=== PATIENT | female | born 1950 | race Caucasian/White ===

== ENCOUNTER 2019-07-21 10:34 | Emergency (ER) | payer MEDICARE ==
[2019-07-21 10:44] VITALS: BP 124/79
--- NOTE | 2019-07-21 12:06 | ED Physician Documentation ---
PD HPI UPPER EXT INJURY - Stated complaint Stated Complaint: RT WRIST PX - Chief complaint Chief Complaint: Ext Problem - History obtained from History obtained from: Patient - History of Present Illness Location: Other (She has chronically bad balance, she tripped and fell last night, she injured her nose and her face. Mostly complains of right wrist and forearm pain. No headache. She is not anticoagulated.) Review of Systems Constitutional: denies: Fever, Chills Ears: denies: Ear pain Nose: denies: Rhinorrhea / runny nose, Congestion, Epistaxis Cardiac: denies: Chest pain / pressure, Palpitations Respiratory: denies: Dyspnea, Cough GI: denies: Abdominal Pain, Nausea, Vomiting Musculoskeletal: reports: Extremity pain. 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 - Present Medications Home Medications: Ambulatory Orders Medication Instructions Recorded Confirmed Hydrocodone/Acetaminophen 1 - 2 each PO Q6H PRN #20 tablet 07/21/19 [Hydrocodon-Acetaminophen 5-325] - Allergies Allergies/Adverse Reactions: Allergies Allergy/AdvReac Type Severity Reaction Status Date / Time propoxyphene [From Darvon] Allergy Diaphoresis Verified 07/21/19 10:39 - Social History Does the pt smoke?: No Smoking Status: Never smoker Does the pt drink ETOH?: Yes ETOH Use: Liquor - Immunizations Immunizations are current?: Yes PD ED PE NORMAL - Vitals Vital signs reviewed: Yes - General General: Alert and oriented X 3, No acute distress - HEENT HEENT: Other (She has periorbital ecchymosis on the right and is tender over the nasal bridge and less so to the infraorbital area. No evidence of entrapment. No other facial bony tenderness.) - Neck Neck: Supple, no meningeal sign, No bony TTP - Extremities Extremities: Other (Quite tender to the distal dorsal wrist, not the snuffbox. This is all on the right. She is also tender to the proximal forearm and elbow. She cannot range the wrist, she can range the elbow a little bit. Normal neurovascular function in the right hand.) - Neuro Neuro: Alert and oriented X 3, Normal speech Results - Vitals Vitals: Vital Signs - 24 hr 07/21/19 10:39 Temperature 36.5 C Heart Rate 89 Respiratory 14 Rate Blood Pressure 124/79 O2 Saturation 97 Oxygen O2 Source Room air - Rads (name of study) CT Face Radiology: EMP read contemporaneously (Left paranasal sinus disease, she is asymptomatic from that perspective but it was discussed with her.) X-rays of the right wrist and right forearm Radiology: EMP read contemporaneously (Nondisplaced oblique fracture of the distal diaphysis of the ulna) Procedures - Splint (location) R arm Splint applied by: [email or web address] Type of splint: Fiberglass, Short arm, Ulnar gutter Other: Patient tolerated well, No complications, Sling provided Departure - Departure Disposition: 01 Home, Self Care Clinical Impression: Fall Qualifiers: Encounter type: initial encounter Qualified Code(s): W19.XXXA - Unspecified fall, initial encounter Right distal ulnar fracture Qualifiers: Encounter type: initial encounter Fracture type: closed Fracture morphology: other fracture Qualified Code(s): S52.691A - Other fracture of lower end of right ulna, initial encounter for closed fracture Facial contusion Qualifiers: Encounter type: initial encounter Qualified Code(s): S00.83XA - Contusion of other part of head, initial encounter Condition: Good Record reviewed to determine appropriate education?: Yes Instructions: ED Fx Forearm Radius Ulna No Redu Requ, ED Head Injury Closed Follow-Up: [facility] [Provider Group] Prescriptions: Hydrocodone/Acetaminophen [Hydrocodon-Acetaminophen 5-325] 1 - 2 each PO Q6H PRN #20 tablet PRN Reason: pain Comments: Call the orthopedic surgeon's office today or tomorrow and arrange for a follow- up in a week or so. Return for new or worsening symptoms. Keep the splint on and dry until you follow-up with the orthopedic surgeons. Try to come out of the sling several times a day to move your shoulder around. Do not drink or drive while taking narcotic pain medication. Note that many narcotic pain relievers also contain Tylenol/acetaminophen. Please ensure that your total dose of acetaminophen from all sources does not exceed 3 g (3000 mg) per day. You may get constipated while on this medication. Take a stool softener such as Colace twice a day while you are on it. Also add an [id number] laxative such as senna or MiraLAX on any day that you do not have a bowel movement. If you received a narcotic pain medication or sedative while in the emergency department, do not drive for the next 24 hours.
--- NOTE | 2019-07-21 12:38 | XRAY Report ---
Reason: wrist inj Procedure Date: 07/21/2019 Accession Number: [id number] / [id number] Procedure: XR - Wrist 4 View RT CPT Code: Final Report FULL RESULT: EXAM: RIGHT WRIST RADIOGRAPHY 4 VIEWS EXAM DATE: 07/21/2019. CLINICAL HISTORY: Pain. Fell yesterday. COMPARISON: None. TECHNIQUE: PA, oblique and lateral views. FINDINGS: Bones: Nondisplaced oblique fracture of the distal diaphysis of the ulna. Joints: No dislocation. Chondrocalcinosis centered on the triangular fibrocartilage. Moderate degenerative joint disease of the interphalangeal joint of the thumb and of the visualized interphalangeal joints of the fingers.. Soft Tissues: Mild swelling of the distal forearm. IMPRESSION: Nondisplaced oblique fracture of the distal diaphysis of the ulna. RADIA
--- NOTE | 2019-07-21 12:41 | XRAY Report ---
Reason: arm inj Procedure Date: 07/21/2019 Accession Number: [id number] / [id number] Procedure: XR - Forearm RT CPT Code: Final Report FULL RESULT: EXAM: RIGHT FOREARM RADIOGRAPHY 2 VIEWS EXAM DATE: 07/21/2019. CLINICAL HISTORY: Pain. Fell yesterday. COMPARISON: Right wrist done at the same time. TECHNIQUE: AP and lateral views. FINDINGS: Bones: On the wrist radiographs, the distal ulnar fracture. Nondisplaced, on these radiographs, the distal ulnar fragment is displaced radial about 2 mm. No other fracture. Joints: No dislocation. No elbow joint effusion. Soft Tissues: Swelling of the distal forearm. IMPRESSION: Minimally displaced fracture of the distal diaphysis of the right ulna. RADIA
[2019-07-21] MEDS ORDERED: HYDROcod/ACETAM 5/325 MG TABLET PO STA (12:43)
--- NOTE | 2019-07-21 13:02 | CT Report ---
Reason: facial trauma Procedure Date: 07/21/2019 Accession Number: [id number] / [id number] Procedure: CT - MAXILLOFACIAL WO CPT Code: Final Report FULL RESULT: EXAM: CT MAXILLOFACIAL WITHOUT CONTRAST EXAM DATE: 07/21/2019 12:39 PM. CLINICAL HISTORY: Acute pain due to trauma. COMPARISONS: None. TECHNIQUE: Thin-section axial images were acquired of the face without contrast. Post-processing: Coronal and sagittal reformats. Other: None. In accordance with CT protocol optimization, one or more of the following dose reduction techniques were utilized for this exam: automated exposure control, adjustment of mA and/or KV based on patient size, or use of iterative reconstructive technique. FINDINGS: Soft Tissue: The infratemporal fossa and parapharyngeal spaces are unremarkable. Orbits: Symmetric and unremarkable. Bones: No fracture or bone lesion. Temporomandibular Joints: The temporomandibular joints are symmetric and normally located. Sinuses: There is moderate left-sided ethmoid and maxillary sinus disease. A small retention cyst is noted in the right maxillary sinus. The left ostiomeatal canal is occluded. Other: None. IMPRESSION: 1. Facial bones appear intact. Intraorbital structures appear intact. 2. Moderate predominantly left-sided paranasal sinus disease. RADIA
== END 2019-07-21 13:23 | disposition home or self-care (01) ==
LOC: ED 10:34
DX: S52.691A Other fracture of lower end of right ulna, initial encounter for closed fracture (principal); S00.83XA Contusion of other part of head, initial encounter; S00.33XA Contusion of nose, initial encounter; W01.0XXA Fall on same level from slipping, tripping and stumbling without subsequent striking against object, initial encounter; J32.0 Chronic maxillary sinusitis; J32.2 Chronic ethmoidal sinusitis; J34.1 Cyst and mucocele of nose and nasal sinus; I10 Essential (primary) hypertension
CPT/HCPCS: 29125; 70486; 73090; 73110; 99284; A9270

== ENCOUNTER 2019-12-31 12:32 | Outpatient (CLI) | payer MEDICARE ==
--- NOTE | 2019-12-31 13:40 | DEXA Report ---
Reason: OSTEOPOROSIS Procedure Date: 12/31/2019 Accession Number: [id number] / [id number] Procedure: DEX - Dexa Spine and/or Hip CPT Code: Final Report FULL RESULT: PROCEDURE: Dexa Spine and/or Hip INDICATIONS: OSTEOPOROSIS TECHNIQUE: Dual energy x-ray absorptiometry (DXA) was performed on a [employer] System. Regions measured are the AP Spine, femoral neck, and if needed forearm. COMPARISON: None. FINDINGS: Lumbar Spine: Bone Mineral Density 1.237 g/cm/cm,T score 0.5, normal Left Hip: Bone Mineral Density 0.900 g/cm/cm,T score -0.9, normal Left Femoral Neck: Bone Mineral Density 0.755 g/cm/cm, T score -2, normal (T score greater or equal to -1.0: NORMAL) (T score from -1.1 to -2.4: OSTEOPENIA) (T score less than or equal to -2.5 to: OSTEOPOROSIS) Impression: Normal bone mineral density, no sign of osteopenia or osteoporosis. Patients with diagnosis of osteoporosis or osteopenia should have regular bone mineral density assessment. For those eligible for Medicare, routine testing is allowed once every 2 years. Testing frequency can be increased for patients who have rapidly progressing disease or for those who are receiving medical therapy to restore bone mass. Reviewed by: Yaakov Lipscomb MD on 12/31/2019 1:39 PM PDT Approved by: Yaakov Lipscomb MD on 12/31/2019 1:39 PM PDT Station ID: [id number]
== END 2019-12-31 12:33 | disposition home or self-care (01) ==
LOC: DI 12:32
PROVIDERS: ATTEND Family Medicine
DX: M81.0 Age-related osteoporosis without current pathological fracture (principal)
CPT/HCPCS: 77080

== ENCOUNTER 2020-10-18 14:28 | Outpatient (CLI) | payer MEDICARE ==
[2020-10-18 19:25] LABS: ALBUMIN 4.5 g/dL (3.2-5.5); ALBUMIN/GLOBULIN RATIO 1.6 (1.0-2.2); ALKALINE PHOSPHATASE 86 IU/L (42-121); ALT ALANINE AMINOTRANSFERASE 29 IU/L (10-60); AST ASPARTATE AMINOTRANSFERASE 23 IU/L (10-42); BILIRUBIN,TOTAL 0.9 mg/dL (0.2-1.0); BUN - BLOOD UREA NITROGEN 16 mg/dL (6-20); CALCIUM 9.9 mg/dL (8.5-10.3); CARBON DIOXIDE - CO2 28 mmol/L (21-32); CHLORIDE 102 mmol/L (101-111); CHOL/HDL RATIO 3.7 (<4.4); CHOLESTEROL 247 mg/dL; CREATININE 0.6 mg/dL (0.4-1.0); GFR - MDRD 99 (>89); GLUCOSE 108 mg/dL (70-100); HDL CHOLESTEROL 66 mg/dL; LDL CHOLESTEROL,CALCULATED 148 mg/dL; LDL/HDL RATIO 2.2 (<4.4); SODIUM 138 mmol/L (135-145); TOTAL PROTEIN 7.3 g/dL (6.7-8.2); TRIGLYCERIDES 163 mg/dL; VLDL CHOLESTEROL 33 mg/dL
[2020-10-18 19:28] LABS: BASOPHILS % (AUTO) 0.7 %; EOSINOPHILS # (AUTO) 0.2 10^3/uL (0.0-0.7); HGB - HEMOGLOBIN 14.2 g/dL (12.0-16.0); LYMPHOCYTES # (AUTO) 0.9 10^3/uL (1.5-3.5); LYMPHOCYTES % (AUTO) 15.2 %; MEAN CORPUSCULAR HEMOGLOBIN 32.7 pg (27.0-31.0); MEAN CORPUSCULAR VOLUME 99.1 fL (81.0-99.0); MEAN PLATELET VOLUME 10.2 fL (7.9-10.8); MONOCYTES # (AUTO) 0.4 10^3/uL (0.0-1.0); MONOCYTES % (AUTO) 7.3 %; NEUTROPHILS # (AUTO) 4.4 10^3/uL (1.5-6.6); NEUTROPHILS % (AUTO) 73.3 %; PLT - PLATELET COUNT 260 10^3/uL (130-450); RED BLOOD COUNT 4.34 10^6/uL (4.20-5.40); RED CELL DISTRIBUTION WIDTH 13.6 % (12.0-15.0)
== END 2020-10-18 14:29 | disposition home or self-care (01) ==
LOC: LAB.N 14:28
PROVIDERS: ATTEND Physician Assistant Medical
DX: E78.5 Hyperlipidemia, unspecified (principal); K21.9 Gastro-esophageal reflux disease without esophagitis
CPT/HCPCS: 36415; 80053; 80061; 83721; 85025

== ENCOUNTER 2020-10-18 14:39 | Outpatient (CLI) | payer MEDICARE ==
--- NOTE | 2020-10-18 18:01 | XRAY Report ---
PROCEDURE: Lumbar Spine 2 View INDICATIONS: LUMBAR RADICULOPATHY TECHNIQUE: 3 views of the lumbar spine were acquired. COMPARISON: None. FINDINGS: Bones: 5 vph-bvp-ybkrset vertebrae are present. There is a mild superior wedge compression fracture involving L2, with approximately 20% height reduction anteriorly as a result. There is normal bony a lignment except for anterolisthesis grade 1 of L4 on L5.. No vertebral body compression fractures. No suspicious bony lesions. The degenerative disc disease and facet osteoarthritis is most prominent at L5-S1 where spinal and foraminal stenosis would be expected. Soft tissues: Overlying bowel gas pattern is normal. No suspicious soft tissue calcifications. IMPRESSION: Degenerative disc disease is moderate to the L5-S1 level where it is moderately severe. Facet osteoarthritis becomes progressively more prominent from L3 inferiorly and is most pronounced a t L5-S1. Anterolisthesis grade 1 of L4 on L5 is present. Previous correlate clinically chronicity of L2 superior mild wedge type compression fracture with tracy roximately 20% height reduction as a result. If there is acute pain and recent trauma this is conside red acute. Reviewed by: Yaakov Lipscomb MD on 10/18/2020 6:00 PM PDT Approved by: Yaakov Lipscomb MD on 10/18/2020 6:00 PM PDT Station ID: [id number]
--- NOTE | 2020-10-18 18:02 | XRAY Report ---
PROCEDURE: Hip w/Pelvis 1V LT INDICATIONS: L HIP PX TECHNIQUE: AP pelvis with lateral view(s) of the left hip(s). COMPARISON: None. FINDINGS: Bones: No fractures or dislocations. Pelvic ring appears intact. No suspicious bony lesions. Symm etric mild to moderate hip joint osteoarthritis is present without trauma. Soft tissues: The visualized bowel gas pattern is normal. No suspicious soft tissue calcifications. IMPRESSION: Symmetric hip joint osteoarthritis, mild to moderate, without trauma. Reviewed by: Yaakov Lipscomb MD on 10/18/2020 6:01 PM PDT Approved by: Yaakov Lipscomb MD on 10/18/2020 6:01 PM PDT Station ID: [id number]
== END 2020-10-18 14:40 | disposition home or self-care (01) ==
LOC: DI.N 14:39
PROVIDERS: ATTEND Physician Assistant Medical
DX: M47.816 Spondylosis without myelopathy or radiculopathy, lumbar region (principal); M47.817 Spondylosis without myelopathy or radiculopathy, lumbosacral region; M51.36 Other intervertebral disc degeneration, lumbar region; M51.37 Other intervertebral disc degeneration, lumbosacral region; M43.16 Spondylolisthesis, lumbar region; M16.0 Bilateral primary osteoarthritis of hip; E78.5 Hyperlipidemia, unspecified; K21.9 Gastro-esophageal reflux disease without esophagitis
CPT/HCPCS: 36415; 80053; 80061; 83721; 85025

== ENCOUNTER 2020-11-23 08:00 | Outpatient (CLI) | payer MEDICARE ==
--- NOTE | 2020-11-24 13:43 | XRAY Report ---
PROCEDURE: Wrist 3 View LT INDICATIONS: PAIN IN LEFT WRIST TECHNIQUE: 3 views of the wrist were acquired. COMPARISON: None FINDINGS: Bones: No fractures or dislocations. No suspicious bony lesions. Soft tissues: No suspicious soft tissue calcifications. IMPRESSION: No visualized acute fracture or dislocation. However, occult injury cannot be excluded. Recommend petr rt interval imaging follow-up in 7-10 days as clinically indicated for additional evaluation. Reviewed by: Sulema Charles MD on 11/24/2020 1:41 PM PDT Approved by: Sulema Charles MD on 11/24/2020 1:41 PM PDT Station ID: [id number]
--- NOTE | 2020-11-24 13:44 | XRAY Report ---
PROCEDURE: Ribs w/PA Chest LT INDICATIONS: RIB PAIN, LEFT SIDED TECHNIQUE: 3 views of the left ribs were acquired, along with a single view chest. COMPARISON: none FINDINGS: Surgical changes and devices: None. Bones and chest wall: No fractures or dislocations. No suspicious bony lesions. Overlying soft tis sues appear unremarkable. Lungs and pleura: No pleural effusions or pneumothorax. Lungs appear clear. Mediastinum: Mediastinal contours appear normal. Heart size is normal. IMPRESSION: No visualized acute fracture or dislocation. However, occult injury cannot be excluded. Recommend petr rt interval imaging follow-up in 7-10 days as clinically indicated for additional evaluation. Reviewed by: Sulema Charles MD on 11/24/2020 1:43 PM PDT Approved by: Sulema Charles MD on 11/24/2020 1:43 PM PDT Station ID: [id number]
== END 2020-11-23 23:59 | disposition home or self-care (01) ==
LOC: DI.N 08:00
PROVIDERS: ATTEND Family Medicine
DX: R07.81 Pleurodynia (principal); M25.532 Pain in left wrist

== ENCOUNTER 2020-12-03 07:45 | Day surgery (SDC) | payer MEDICARE ==
[2020-12-03] MEDS ORDERED: LACTATED RINGERS 1,000 ML IV ONE (08:12)
--- NOTE | 2020-12-03 08:58 | ANESTHESIA ---
Pre-Anesthesia VS, & Labs - Diagnosis screening - Procedure colonoscopy, possible removal skin tag Vital Signs: Temp Pulse Resp BP Pulse Ox 36.4 C L 95 16 125/82 H 97 12/03/20 08:03 12/03/20 08:03 12/03/20 08:03 12/03/20 08:03 12/03/20 08:03 Height: 5 ft 2 in Weight (kg): 86 kg Body Mass Index: 34.7 BMI Classification: Obese - NPO >8 hours - Is Patient ?: Yes Home Medications and Allergies Home Medications: Ambulatory Orders Atorvastatin [Lipitor] 20 mg PO DAILY 12/02/20 Folic Acid 1 mg PO DAILY 12/02/20 Lisinopril [Zestril] 10 mg PO DAILY 12/02/20 Methotrexate [Methotrexate Sodium] 5 mg PO ONCE 12/02/20 Omeprazole [PriLOSEC] 20 mg PO DAILY 12/02/20 Venlafaxine [Effexor] 37.5 mg PO BID 12/02/20 Zolpidem [Ambien] 5 mg PO HS 12/02/20 Atorvastatin [Lipitor] 20 mg PO DAILY 12/02/20 Folic Acid 1 mg PO DAILY 12/02/20 Lisinopril [Zestril] 10 mg PO DAILY 12/02/20 Methotrexate [Methotrexate Sodium] 5 mg PO ONCE 12/02/20 Omeprazole [PriLOSEC] 20 mg PO DAILY 12/02/20 Venlafaxine [Effexor] 37.5 mg PO BID 12/02/20 Zolpidem [Ambien] 5 mg PO HS 12/02/20 Allergies/Adverse Reactions: Allergies Allergy/AdvReac Type Severity Reaction Status Date / Time propoxyphene [From Darvon] Allergy Diaphoresis Verified 07/21/19 10:39 Sulfa (Sulfonamide Allergy Edema Verified 12/03/20 08:13 Antibiotics) Anes History & Medical History - Anesthetic History Anesthesia Complications: reports: No previous complications - Medical History Cardiovascular: reports: Hypertension, High cholesterol Pulmonary: reports: Sleep apnea, CPAP use Gastrointestinal: reports: GERD Skin: reports: Psoriasis Smoking Status: Never smoker History of Cancer?: No - Surgical History General: reports: Colonoscopy Gynecologic: reports: Hysterectomy Orthopedic: reports: Knee replacement Exam General: Alert Dental: WNL Mouth Opening: Greater than 4 Fingerbreadths Mallampati classification: II Thyromental Distance: greater than 6 cm Respiratory: Lungs clear Cardiovascular: Regular rate Plan Anesthesia Type: Total IV Consent for Procedure(s) Verified and Reviewed: Yes Code Status: Attempt Resuscitation ASA classification: 2-Mild systemic disease Is this case an emergency?: No
[2020-12-03] MEDS ORDERED: LIDOCAINE-MPF 2% 5 ML VIAL ONE (09:50)
[2020-12-03] MEDS ORDERED: PROPOFOL 1000 MG/100 ML 1,000 MG/100 ML BOTTLE IV ONE (09:50)
--- NOTE | 2020-12-03 10:08 | HISTORY & PHYSICAL EXAMINATION ---
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 Meds/Allgy - Home Medications Home Medications: Ambulatory Orders Medication Instructions Recorded Confirmed Atorvastatin [Lipitor] 20 mg PO DAILY 12/02/20 12/03/20 Folic Acid 1 mg PO DAILY 12/02/20 12/02/20 Lisinopril [Zestril] 10 mg PO DAILY 12/02/20 12/03/20 Methotrexate [Methotrexate Sodium] 5 mg PO ONCE 12/02/20 12/02/20 Omeprazole [PriLOSEC] 20 mg PO DAILY 12/02/20 12/02/20 Venlafaxine [Effexor] 37.5 mg PO BID 12/02/20 12/02/20 Zolpidem [Ambien] 5 mg PO HS 12/02/20 12/02/20 - Allergies Allergies/Adverse Reactions: Allergies Allergy/AdvReac Type Severity Reaction Status Date / Time propoxyphene [From Darvon] Allergy Diaphoresis Verified 07/21/19 10:39 Sulfa (Sulfonamide Allergy Edema Verified 12/03/20 08:13 Antibiotics) Review of Systems - Other Findings Other Findings: 10 pt ros as above otherwise unremarkable Exam - Vital Signs Reviewed Vital Signs: Yes Vital Signs: Vital Signs x48h Temp Pulse Resp BP Pulse Ox 12/03/20 08:03 36.4 C L 95 16 125/82 H 97 - Physical Exam General Appearance: positive: Alert Eyes Bilateral: positive: PERRL, EOMI Neck: positive: No JVD Respiratory: positive: Breath sounds nml Cardiovascular: positive: Regular rate & rhythm Abdomen: positive: Non-tender, No distention Neurologic/Psychiatric: positive: Oriented x3 Conclusion/Plan - Problem List (1) History of adenomatous polyp of colon Conclusion/Plan: colonoscopy with possible biopsy/ polypectomy and excision anal skin tag. parq held and consent obtained
[2020-12-03] MEDS ORDERED: LACTATED RINGERS 100 ML IV ONE (10:48)
[2020-12-03 11:13] VITALS: BP 118/58
--- NOTE | 2020-12-03 16:44 | ANESTHESIA POST OP EVALUATION ---
Anesthesia Post Eval - Post Anesthesia Eval Vitals: Last Vital Signs Temp 36.3 C L 12/03/20 11:12 Pulse 70 12/03/20 11:12 Resp 18 12/03/20 11:12 BP 118/58 L 12/03/20 11:12 Pulse Ox 99 12/03/20 11:12 CV Function Including HR & BP: Stable Pain Control: Satisfactory Nausea & Vomiting: Negative Mental Status: Baseline Respiratory Status: Airway Patent Hydration Status: Satisfactory Anesthesia Complications: None
== END 2020-12-03 07:46 | disposition home or self-care (01) ==
LOC: SDS 07:45
PROVIDERS: ATTEND Surgery
DX: Z12.11 Encounter for screening for malignant neoplasm of colon (principal); K57.30 Diverticulosis of large intestine without perforation or abscess without bleeding; E66.9 Obesity, unspecified; G47.30 Sleep apnea, unspecified; Z86.010 Personal history of colon polyps; Z68.34 Body mass index [BMI] 34.0-34.9, adult
CPT/HCPCS: G0105; J7120

== ENCOUNTER 2021-04-21 06:26 | Day surgery (SDC) | payer MEDICARE ==
[~2021-04-21 06:26] MED LIST: CYCLOPENTOLATE 1% OPHTH DROPS 2 ML ONE; KETOROLAC 0.45% OPHTH DROPS ONE; PHENYLEPHRINE 2.5% OPHTH 2 ML DROPS ONE; PROPARACAINE 0.5% OPHTH DROPS 15 ML ONE
[2021-04-21] MEDS ORDERED: LACTATED RINGERS 1,000 ML IV ONE (06:48)
--- NOTE | 2021-04-21 06:58 | ANESTHESIA ---
Pre-Anesthesia VS, & Labs - Diagnosis R nuclear sclerotic cataract - Procedure R extraction cataract Vital Signs: Temp Pulse Resp BP Pulse Ox 36.2 C L 94 18 113/67 97 04/21/21 06:30 04/21/21 06:30 04/21/21 06:30 04/21/21 06:30 04/21/21 06:30 Height: 5 ft 2 in Weight (kg): 83 kg Body Mass Index: 33.5 BMI Classification: Obese - NPO >8 hours - Is Patient ?: No - Lab Results Lab results reviewed: Yes Home Medications and Allergies Atorvastatin [Lipitor] 10 mg PO DAILY 12/02/20 Folic Acid 1 mg PO DAILY 12/02/20 Lisinopril [Zestril] 40 mg PO DAILY 12/02/20 Methotrexate [Methotrexate Sodium] 5 mg PO OAW 12/02/20 Omeprazole [PriLOSEC] 20 mg PO DAILY 12/02/20 Venlafaxine [Effexor] 37.5 mg PO DAILY 12/02/20 Zolpidem [Ambien] 5 mg PO HS 12/02/20 Allergies/Adverse Reactions: Allergies Allergy/AdvReac Type Severity Reaction Status Date / Time propoxyphene [From Darvon] Allergy Diaphoresis Verified 07/21/19 10:39 Sulfa (Sulfonamide Allergy Edema Verified 12/03/20 08:13 Antibiotics) Anes History & Medical History - Anesthetic History Anesthesia Complications: reports: No previous complications Family history of Anesthesia Complications: Denies Family history of Malignant Hyperthermia: Denies - Medical History Cardiovascular: reports: Hypertension, High cholesterol Pulmonary: reports: Sleep apnea, CPAP use Gastrointestinal: reports: GERD Urinary: reports: None Musculoskeletal: reports: Osteoarthritis Endocrine/Autoimmune: reports: None Skin: reports: Psoriasis Smoking Status: Never smoker Psychosocial: reports: No issues indicated - Surgical History General: reports: Colonoscopy Eyes Ears Nose Throat (EENT): reports: Tonsil/Adenoidectomy Gynecologic: reports: Hysterectomy Orthopedic: reports: Knee replacement Exam General: Alert, Oriented x3, Cooperative Dental: WNL Mouth Openin Fingerbreadth Neck Mobility: Normal Thyromental Distance: greater than 6 cm Respiratory: Lungs clear, Normal breath sounds, No respiratory distress Cardiovascular: Regular rate Neurological: Normal speech Mental/Cognitive Status: Alert/Oriented X3, Normal for patient Cognitive Status: Within normal limits Plan Anesthesia Type: MAC Consent for Procedure(s) Verified and Reviewed: Yes Code Status: Attempt Resuscitation ASA classification: 2-Mild systemic disease Is this case an emergency?: No
[2021-04-21] MEDS ORDERED: MIDAZOLAM 2 MG/2 ML VIAL ONE (07:05)
[2021-04-21] MEDS ORDERED: EPINEPHrine 1 MG/ML AMP ONE (07:14)
[2021-04-21] MEDS ORDERED: BSS/LIDOCAINE/EPINEPHRINE 1 ML SYRINGE ONE (07:14)
[2021-04-21] MEDS ORDERED: BRIMONIDINE 0.2% OPHTH DROPS 5 ML ONE (07:14)
[2021-04-21] MEDS ORDERED: TIMOLOL 0.5% OPHTH DROPS ONE (07:14)
[2021-04-21] MEDS ORDERED: TRIAMCIN/MOXIFLOX OPHTHALMIC 0.6 ML VIAL IO ONE ×3 (07:14→07:42)
[2021-04-21] MEDS ORDERED: VANCOMYCIN OPHTHALMI 8MG/0.8ML 8 MG/0.8 ML SYRINGE IO ONE ×2 (07:15→07:30)
[2021-04-21] MEDS ORDERED: EPINEPHrine 1 MG/ML AMP IR ONE (07:30)
[2021-04-21] MEDS ORDERED: BSS/LIDOCAINE/EPINEPHRINE 1 ML SYRINGE IO ONE (07:30)
[2021-04-21] MEDS ORDERED: TIMOLOL 0.5% OPHTH DROPS OPTH ONE (07:30)
[2021-04-21] MEDS ORDERED: BRIMONIDINE 0.2% OPHTH DROPS 5 ML OPTH ONE (07:30)
[2021-04-21] MEDS ORDERED: PROPARACAINE 0.5% OPHTH DROPS 15 ML EACHEYE ONE (07:30)
[2021-04-21] MEDS ORDERED: LACTATED RINGERS 900 ML IV ONE (07:47)
[2021-04-21 08:01] VITALS: BP 93/57
--- NOTE | 2021-04-21 08:19 | OPERATIVE REPORT ---
Operative Report - Other Other Information/Narrative: Date of Surgery: 04/21/21 Preop Dx: Visually significant cataract right eye. This was the first cataract surgery. Postop Dx: Same Procedure: Phacoemulsification with posterior chamber intraocular lens implant right eye Surgeon: Dr. Bill Cota Anesthesia: Monitored anesthesia care Complications: None Operative Indications: This is a 71-year-old F with progressive vision loss in the right eye due to 3+ nuclear sclerotic and 1+ posterior subcapsular cataract. Best corrected visual acuity was 20/30 with glare to 20/400 vision in the right eye. Indications for surgery were: - Overall decrease in vision - Difficulty reading - Difficulty seeing street signs - Difficulty driving in low light or at night - Difficulty driving at night because of headlights from other vehicles The patient was consented at length concerning the risks and benefits of cataract surgery after which the patient expressed a desire to proceed with surgery. Operative Procedure: The patient was taken into OR#3 and placed under monitored anesthesia care. A surgical time-out was conducted confirming correct patient, correct procedure, and correct surgical site. The patient was given topical anesthesia and then prepped and draped in the usual sterile fashion. The eye was entered at the 6 and 3 oclock positions. Intracameral Shugarcaine was injected into the anterior chamber followed by a dispersive viscoelastic. A continuous-tear curvilinear capsulorhexis was performed. The nucleus was hydrodissected and phacoemulsified. The cortex was evacuated using automated infusion and aspiration. A cohesive viscoelastic was injected into the capsular bag and a 21.5 diopter intraocular lens was inserted into the bag. Infusion and aspiration were used to evacuate the viscoelastic materials from the eye. The wounds were hydrated and the eye inflated to physiologic pressure using balanced salt solution. Approximately 0.25ml of a mixture of triamcinolone and moxifloxacin was injected trans-sclerally into the vitreous in the inferotemporal quadrant using a 30 gauge cannula. An additional 0.55ml of a mixture of triamcinolone, moxifloxacin, and vancomycin was injected subconjunctivally in the superior quadrant for infection and inflammation prophylaxis. Wound integrity was checked with Weck-Nathaly sponges. The patient was taken from the operating room in good condition and given post-op instructions.
--- NOTE | 2021-04-21 08:53 | ANESTHESIA POST OP EVALUATION ---
Anesthesia Post Eval - Post Anesthesia Eval Vitals: Last Vital Signs Temp 36.7 C 04/21/21 08:00 Pulse 72 04/21/21 08:00 Resp 14 04/21/21 08:00 BP 93/57 L 04/21/21 08:00 Pulse Ox 100 04/21/21 08:00 CV Function Including HR & BP: Stable Pain Control: Satisfactory Nausea & Vomiting: Negative Mental Status: Baseline Respiratory Status: Airway Patent Hydration Status: Satisfactory Anesthesia Complications: None
== END 2021-04-21 06:27 | disposition home or self-care (01) ==
LOC: SDS 06:26
PROVIDERS: ATTEND Ophthalmology
DX: H25.11 Age-related nuclear cataract, right eye (principal); G47.33 Obstructive sleep apnea (adult) (pediatric); E66.9 Obesity, unspecified; Z68.33 Body mass index [BMI] 33.0-33.9, adult
CPT/HCPCS: 66984; A9270; J3490; J7120

== ENCOUNTER 2021-04-27 10:47 | Outpatient (CLI) | payer MEDICARE ==
[2021-04-27 18:20] LABS: ALBUMIN 4.5 g/dL (3.2-5.5); ALBUMIN/GLOBULIN RATIO 1.7 (1.0-2.2); ALKALINE PHOSPHATASE 104 IU/L (42-121); ALT ALANINE AMINOTRANSFERASE 31 IU/L (10-60); AST ASPARTATE AMINOTRANSFERASE 21 IU/L (10-42); BILIRUBIN,TOTAL 0.8 mg/dL (0.2-1.0); BUN - BLOOD UREA NITROGEN 17 mg/dL (6-20); CALCIUM 10.2 mg/dL (8.5-10.3); CARBON DIOXIDE - CO2 25 mmol/L (21-32); CHLORIDE 100 mmol/L (101-111); CHOL/HDL RATIO 4.6 (<4.4); CHOLESTEROL 224 mg/dL; CREATININE 0.7 mg/dL (0.4-1.0); GFR - MDRD 82 (>89); GLUCOSE 105 mg/dL (70-100); HDL CHOLESTEROL 49 mg/dL; LDL CHOLESTEROL,CALCULATED 141 mg/dL; LDL/HDL RATIO 2.9 (<4.4); POTASSIUM 4.6 mmol/L (3.5-5.0); SODIUM 134 mmol/L (135-145); TOTAL PROTEIN 7.1 g/dL (6.7-8.2); TRIGLYCERIDES 169 mg/dL; VLDL CHOLESTEROL 34 mg/dL
== END 2021-04-27 10:48 | disposition home or self-care (01) ==
LOC: LAB.N 10:47
PROVIDERS: ATTEND Physician Assistant Medical
DX: E78.5 Hyperlipidemia, unspecified (principal)
CPT/HCPCS: 36415; 80053; 80061; 83721

== ENCOUNTER 2021-05-04 12:48 | Outpatient (CLI) | payer MEDICARE ==
[2021-05-04 15:36] VITALS: BP 99/61
--- NOTE | 2021-05-04 15:36 | SLEEP CARE CONSULTATION ---
Information from patient questionnaire entered by Michelle Moss MA. I have reviewed and concur with the information entered by Michelle Moss MA. This document represents the service I personally performed and the decisions made by , Dia Su ARNP. History of Present Illness Service Date and Time: 05/04/2021 1248 Reason for Visit: New patient Chief Complaint: reports: Snoring, Frequent awakenings at night, Other (update supplies) Date of Onset: 2010 Usual bedtime: 10:00 Time it takes to fall asleep: usually 20 minutes Snores at night: Yes (not as much since CPAP) Observed to quit breathing while asleep: Yes Number of times waking at night: 2 Reasons for waking at night: reports: Bathroom, Other (feet bother me RLS) Toss, Turn, or Twitch while sleeping: Yes Recalls having dreams: Yes (not often) Usually gets out of bed at: 0730 Feels refreshed in the morning: Yes Morning headache: No Sleepy or fatigued during the day: Yes Ever fallen asleep while driving: No Takes day naps: No Dreams during day naps: Yes Prior sleep studies: Yes Year and Where: [facility] 2011 Type of Sleep Study: Polysomnography Additional HPI information: ISABELA KAUR was previously diagnosed to have unknown, AHI unknown, sleep apnea-hypopnea syndrome and comes in today to establish care for CPAP therapy. - Parasomnia Symptoms Ever been unable to move upon waking from sleep: No Walks in sleep: No Talks in sleep: No Ever acted out dreams in sleep: No Ever felt weak in the knees when startled or emotional: No Bothered by creepy, crawly, restless sensations in legs: Yes Problems with memory or concentration: Yes CPAP Compliance Data - Data Reviewed with Patient Average duration of nightly device use: 7 hours 51 minutes Compliance rate %: 94 Current pressure setting (cmH2O): 5-8.4 Average residual AHI: 2.8 Compliance data discussion: She is using a ResMed Airsense 10 and getting her supplies at [facility]. She is using a F[employer] Eson nasal mask, over the nose. She last changed her mask about 3-4 months ago and needs supplies. Subjective Patient concerns: denies: aerophagia, mask discomfort, air blowing in eyes, mask leak noise, condensation in mask/hose, nasal congestion, dry mouth, nose, throat, epistaxis, other Observed to snore while using device: No Current pressure setting perceived as: comfortable On therapy, patient: reports: sleeping better, awakening more refreshed, being more awake and alert during the day, more rested overall. denies: drowsiness while driving Initial [place] Sleepiness Scale score: 3 (2020) Past Medical History Past Medical History: reports: Hypertension, Arthritis, GERD, Other (right knee replaced 5 yrs ago; hysterectomy) Social History The patient's occupation is a RE. Patient is and lives in [place]. Have you smoked in the past 12 months: No (3-4 months as a teen) Cigarettes per day (20/pack): 3 Quit date: teen Alcohol use: No Alcohol amount and frequency: quit 2 months Caffeine use: Yes Caffeine amount and frequency: 1 cup daily Family History Family history of sleep disordered breathing: No Family Hx Sleep Apnea: Mother: Snoring Allergies and Home Medications Known drug allergies: Yes (sulfa drugs) Drug allergies reviewed: Yes (propoxyphene, sulfa) Home medication list reviewed: Yes Allergy and home medication list: Omeprazole Venlafaxine Lisinopril Atorvastatin 1/2 Zolpidem at night Review of Systems Weight loss over past 5 years: 25 in last 3 months Cardiovascular: reports: high blood pressure, leg or foot swelling Gastrointestinal: reports: heartburn Neurological: reports: gait or balance problems Psychiatric: reports: depression Ear/Nose/Throat: reports: tonsillectomy, other (difficultyhearing) Musculoskeletal: reports: joint pain, back pain, muscle pain or cramping Immunologic: reports: other (psoriasis) Physical Exam Vital signs obtained and entered by: Isa Matthew CMA AAMA Blood Pressure: 99/61 (left) Cuff size: wrist Heart Rate: 64 O2 Saturation: 97 (with mask) Height: 5 ft 2 in Weight: 177 lb (without boots) Weight change since last visit: patient is actively trying to eat healthy and loose weight Body Mass Index: 32.3 BMI Classification: Obese Heart: regular rate and rhythm Lungs: clear bilaterally Impression and Plan 1. Obstructive Sleep Apnea-Hypopnea Syndrome, unknown, with good treatment compliance and good apnea control. On CPAP therapy, the patient has better sleep quality and is more rested overall. Patient is here to establish care. She is satisfied with current CPAP therapy and pressure settings. The patients CPAP is over 5 years old and of reasonable use. Thus, the CPAP will be updated. A DWO prescription will be made after we have obtained a copy of her last sleep study with diagnosis and severity of her sleep apnea. If we are unable to obtain a copy of her last sleep study I will order a sleep study to verify diagnosis. Compliance guidelines for new device and follow up discussed. Patient's apnea severity and rationale for treatment to reduce apnea, improve sleep quality and reduce cardiovascular and cerebrovascular events was reviewed. I also reviewed the benefit of consistent device use of CPAP for hypertension and gastric reflux. * Continue auto CPAP pressure at 5-8.4 cmH2O * Update machine * Update supplies as needed * Notify me if snoring with mask or feeling that the pressure is too much or too little * Attempt to lose weight * Call this office if any problems using CPAP * Return for follow up one month after obtaining new device, or sooner if concerns arise Counseling Topics: Spare mask, Weight loss health impact Location of Provider: Office Time Spent with Patient (minutes): 33
== END 2021-05-04 12:49 | disposition home or self-care (01) ==
LOC: SC 12:48
PROVIDERS: ATTEND Nurse Practitioner Family
DX: G47.33 Obstructive sleep apnea (adult) (pediatric) (principal); E66.9 Obesity, unspecified; Z68.32 Body mass index [BMI] 32.0-32.9, adult
CPT/HCPCS: 99203; G0463; 99212

== ENCOUNTER 2021-05-16 12:40 | Outpatient (CLI) | payer MEDICARE ==
--- NOTE | 2021-05-23 12:57 | Mammography Report ---
BILATERAL DIGITAL SCREENING MAMMOGRAM 3D/2D: 05/16/2021 CLINICAL: Routine screening. No prior exams were available for comparison. The tissue of both breasts is predominantly fatty. No significant masses, calcifications, or other findings are seen in either breast. IMPRESSION: NEGATIVE There is no mammographic evidence of malignancy. A 1 year screening mammogram is recommended. This exam was interpreted at Station ID: [id number]. NOTE: For mammograms, a report in lay terms will be sent to the patient. Approximately 15% of breast malignancies will not be visualized mammographically. In the management of a palpable breast mass, a negative mammogram must not discourage biopsy of a clinically suspicious lesion. Electronically Signed By: Benjamín Rocha M.D., jr/yamilex:05/23/2021 10:34:48 ACR BI-RADS Category 1: Negative 3341F PARENCHYMAL PATTERN: (F) - The breast(s) demonstrate(s) diffuse fatty replacement. BI-RADS CATEGORY: (1) - 1 RECOMMENDATION: (ANNUAL) - Recommend routine annual screening mammography. [id number] 1 year screening LATERALITY: (B)
== END 2021-05-16 12:41 | disposition home or self-care (01) ==
LOC: DI.N 12:40
DX: Z12.31 Encounter for screening mammogram for malignant neoplasm of breast (principal)

== ENCOUNTER 2021-05-25 19:33 | Emergency (ER) | payer MEDICARE ==
[2021-05-25 20:03] LABS: BASOPHILS # (AUTO) 0.1 10^3/uL (0.0-0.1); BASOPHILS % (AUTO) 0.8 %; EOSINOPHILS # (AUTO) 0.2 10^3/uL (0.0-0.7); EOSINOPHILS % (AUTO) 2.7 %; HCT - HEMATOCRIT 39.7 % (37.0-47.0); HGB - HEMOGLOBIN 13.8 g/dL (12.0-16.0); LYMPHOCYTES # (AUTO) 1.8 10^3/uL (1.5-3.5); LYMPHOCYTES % (AUTO) 22.9 %; MEAN CORPUSCULAR HEMOGLOBIN 32.4 pg (27.0-31.0); MEAN CORPUSCULAR HGB CONC 34.8 g/dL (32.0-36.0); MEAN CORPUSCULAR VOLUME 93.2 fL (81.0-99.0); MEAN PLATELET VOLUME 9.9 fL (7.9-10.8); MONOCYTES # (AUTO) 0.6 10^3/uL (0.0-1.0); MONOCYTES % (AUTO) 7.5 %; NEUTROPHILS # (AUTO) 5.1 10^3/uL (1.5-6.6); NEUTROPHILS % (AUTO) 65.8 %; PLT - PLATELET COUNT 289 10^3/uL (130-450); RED BLOOD COUNT 4.26 10^6/uL (4.20-5.40); RED CELL DISTRIBUTION WIDTH 12.8 % (12.0-15.0); WHITE BLOOD COUNT 7.8 x10^3/uL (4.8-10.8)
--- NOTE | 2021-05-25 20:09 | ED Physician Documentation ---
PD HPI GI BLEED - Stated complaint Stated Complaint: LIGHTHEADED,SHAKY,BLOOD IN STOOL - Chief complaint Chief Complaint: Neuro - History obtained from History obtained from: Patient - History of Present Illness Timing - onset: How many hours ago (2) Timing - duration: Hours (2) Timing - details: Abrupt onset Pain level max: 0 Pain level now: 0 Associated symptoms: BRBPR Contributing factors: No: Sick contact, Bad food, Travel, Recent antibiotics, Alcohol use, Aspirin use, NSAID use, Stress, Anticoagulated, Diabetes Improved by: Other (nothing) Worsened by: Other (nothing) Similar symptoms before: Diagnosis (hemorrhoid) Recently seen: Clinic (seen in clinic today, hgb 13, sent here for evlaluation.) - Additional information Additional information: States colonoscopy in August 2020, diverticulosis and a polyp. Review of Systems Ten Systems: 10 systems reviewed and negative Constitutional: denies: Fever, Chills Nose: denies: Rhinorrhea / runny nose, Congestion Throat: denies: Sore throat Cardiac: denies: Chest pain / pressure Respiratory: denies: Cough GI: denies: Abdominal Pain, Nausea, Vomiting, Constipation, Diarrhea, Hematemesis Skin: denies: Rash Musculoskeletal: denies: Neck pain, Back pain Neurologic: denies: Headache PD PAST MEDICAL HISTORY - Past Medical History Cardiovascular: Hypertension, High cholesterol Respiratory: Sleep apnea GI: GERD HEENT: Chronic hearing loss - Past Surgical History Past Surgical History: Yes Ortho: Knee replacement /[employer]: Hysterectomy - Present Medications Home Medications: Ambulatory Orders Medication Instructions Recorded Confirmed Atorvastatin [Lipitor] 10 mg PO DAILY 12/02/20 04/21/21 Folic Acid 1 mg PO DAILY 12/02/20 04/21/21 Lisinopril [Zestril] 40 mg PO DAILY 12/02/20 04/21/21 Methotrexate [Methotrexate Sodium] 5 mg PO OAW 12/02/20 04/21/21 Omeprazole [PriLOSEC] 20 mg PO DAILY 12/02/20 04/21/21 Venlafaxine [Effexor] 37.5 mg PO DAILY 12/02/20 04/21/21 Zolpidem [Ambien] 5 mg PO HS 12/02/20 04/21/21 - Allergies Allergies/Adverse Reactions: Allergies Allergy/AdvReac Type Severity Reaction Status Date / Time propoxyphene [From Darvon] Allergy Diaphoresis Verified 05/25/21 19:43 Sulfa (Sulfonamide Allergy Edema Verified 05/25/21 19:43 Antibiotics) - Social History Does the pt smoke?: No Smoking Status: Never smoker Does the pt drink ETOH?: Yes - Immunizations Immunizations are current?: Yes PD ED PE NORMAL - Vitals Vital signs reviewed: Yes - General General: Alert and oriented X 3, No acute distress - HEENT HEENT: Moist mucous membranes - Neck Neck: Supple, no meningeal sign - Cardiac Cardiac: RRR - Respiratory Respiratory: No respiratory distress, Clear bilaterally - Abdomen Abdomen: Soft, Non tender, Non distended - Female Female : Pt declined - Derm Derm: Warm and dry - Neuro Neuro: Alert and oriented X 3 - Psych Psych: Normal mood, Normal affect Results - Vitals Vitals: Vital Signs - 24 hr 05/25/21 05/25/21 05/25/21 19:40 20:12 20:25 Temperature 36.1 C L 36.9 C Heart Rate 86 67 67 Respiratory 16 14 14 Rate Blood Pressure 125/82 H 118/78 118/78 O2 Saturation 98 96 99 Oxygen O2 Source Room air - Labs Labs: Laboratory Tests 05/25/21 05/25/21 19:57 19:57 WBC 7.8 RBC 4.26 Hgb 13.8 Hct 39.7 MCV 93.2 MCH 32.4 H MCHC 34.8 RDW 12.8 Plt Count 289 MPV 9.9 Neut # (Auto) 5.1 Lymph # (Auto) 1.8 Bradford # (Auto) 0.6 Eos # (Auto) 0.2 Baso # (Auto) 0.1 Absolute Nucleated RBC 0.00 Nucleated RBC % 0.0 Sodium 136 Potassium 3.4 L Chloride 100 L Carbon Dioxide 26 Anion Gap 10.0 BUN 15 Creatinine 0.7 Estimated GFR (MDRD) 82 L Glucose 106 H Calcium 10.3 Total Bilirubin 0.7 AST 19 ALT 26 Alkaline Phosphatase 94 Total Protein 7.1 Albumin 4.5 Globulin 2.6 Albumin/Globulin Ratio 1.7 Lipase 41 PD MEDICAL DECISION MAKING - ED course Complexity details: reviewed old records, reviewed results, re-evaluated patient, considered differential, d/w patient ED course: Patient with hematochezia today. She declines a second rectal exam as she just had one at the clinic. Hemoglobin is stable. Vital signs are stable. Patient asymptomatic. Had a colonoscopy in August. No indication for further testing or imaging at this time. She is not on anticoagulants. Patient counseled regarding signs and symptoms for which I believe and urgent re-evaluation would be necessary. Patient with good understanding of and agreement to plan and is comfortable going home at this time This document was made in part using voice recognition software. While efforts are made to proofread this document, sound alike and grammatical errors may occur. Departure - Departure Disposition: 01 Home, Self Care Clinical Impression: Hematochezia Condition: Good Instructions: ED Hematochezia Stable Follow-Up: Constance Shepherd PA-C [Primary Care Provider] - Within 1 week Comments: Please follow-up with your doctor for further care. Return if you worsen. Especially for lightheadedness, dizziness or near syncope. This normally will resolve on its own. It could be due to the polyp, a hemorrhoid or possible diverticular bleeding. There is no evidence of infection. Discharge Date/Time: 05/25/21 20:25
[2021-05-25 20:12] VITALS: BP 118/78
[2021-05-25 20:16] LABS: ALBUMIN 4.5 g/dL (3.2-5.5); ALBUMIN/GLOBULIN RATIO 1.7 (1.0-2.2); BILIRUBIN,TOTAL 0.7 mg/dL (0.2-1.0); CALCIUM 10.3 mg/dL (8.5-10.3); CREATININE 0.7 mg/dL (0.4-1.0); POTASSIUM 3.4 mmol/L (3.5-5.0); TOTAL PROTEIN 7.1 g/dL (6.7-8.2)
== END 2021-05-25 20:25 | disposition home or self-care (01) ==
LOC: ED 19:33
DX: K92.1 Melena (principal); I10 Essential (primary) hypertension
CPT/HCPCS: 36415; 80053; 83690; 85025; 99282; 99284

== ENCOUNTER 2021-10-28 09:11 | Outpatient (CLI) | payer MEDICARE ==
[2021-10-28 10:38] VITALS: BP 154/93
--- NOTE | 2021-10-28 10:38 | SLEEP CARE CONSULTATION ---
Information from patient questionnaire entered by Michelle Cesar MA. I have reviewed and concur with the information entered by Michelle Cesar MA. This document represents the service I personally performed and the decisions made by , Dia Su ARNP. History of Present Illness Service Date and Time: 10/28/2021 0911 Previous diagnosis: Severe, Complex Sleep Apnea-Hypopnea Syndrome AHI: 30 (in 2011) Reason for follow up: first compliance after device update (Resmed, replaced 07/07/2021,) Equipment type: CPAP Equipment obtained from: [email or web address] (getting supplies as needed) Mask style: Nasal (over the nose) Mask brand: [employer] (Eson) Backup mask available: Yes (old mask) Last cushion change: 2 weeks Prior sleep studies: Yes Year and Where: [facility] Type of Sleep Study: Polysomnography HPI additional information: ISABELA KAUR was diagnosed to have severe, AHI 30.0, complex sleep apnea- hypopnea syndrome and returned today for CPAP therapy first compliance after updating device (ResMed) follow-up. Sleep Study - Results Type of Sleep Study: Polysomnography Prior sleep studies: Yes Year and Where: [facility] 2011 CPAP Compliance Data - Data Reviewed with Patient Average duration of nightly device use: 7 HOURS 30 MINUTES Compliance rate %: 80 (09/27 - 10/26/2021; 30 days) Current pressure setting (cmH2O): 6-7 Average residual AHI: 2.2 Central apnea: .1 Obstructive apnea: 1.1 Average large leak: 24.8 Subjective Missed days of use due to: reports: travel (used old ResMed when traveling) Patient concerns: reports: mask leak noise (new mask cushion stiffer), dry mouth, nose, throat (dry mouth). denies: aerophagia, mask discomfort, air blowing in eyes, condensation in mask/hose, nasal congestion, epistaxis, other Observed to snore while using device: No Current pressure setting perceived as: comfortable On therapy, patient: reports: sleeping better, awakening more refreshed, being more awake and alert during the day, more rested overall. denies: drowsiness while driving Initial [place] Sleepiness Scale score: 3 (2020) Current [place] Sleepiness Scale score: 9 Allergies and Home Medications Home medication list reviewed: Yes (no changes) Allergy and home medication list: Allergies propoxyphene [From Darvon] Allergy (Verified 05/25/21 19:43) Diaphoresis Sulfa (Sulfonamide Antibiotics) Allergy (Verified 05/25/21 19:43) Edema Review of Systems Review of systems same as previous: Yes (no changes) Physical Exam Vital signs obtained and entered by: Mell CESAR CMA AAMA Blood Pressure: 154/93 (PULSE, RESP 18, ) Heart Rate: 76 O2 Saturation: 98 (N95 MASK) Height: 5 ft 2 in Weight: 181 lb (CLOTHES) Weight change since last visit: 4 lb gain Body Mass Index: 33.0 BMI Classification: Obese Impression and Plan 1. Complex Sleep Apnea-Hypopnea Syndrome, severe, with good treatment compliance and good apnea control. On CPAP therapy, the patient has better sleep quality and is more rested overall. She states the mask cushion is a little uncomfortable just because it is stiffer from being new. I advised she could try a mask barrier with soft fabric to help with mask cushion comfort. She has been getting a dryer mouth recently. Oral dryness can be reduced by adjusting humidity setting higher or heated hose lower or by adjusting both settings. Verbal instructions given on how to change humidity and heated hose settings with rationale explaining why to change. Patient denies problems with nasal congestion, epistaxis, skin irritation or aerophagia. Patient's apnea severity and rationale for treatment to reduce apnea, improve sleep quality and reduce cardiovascular and cerebrovascular events was reviewed. I also reviewed the benefit of consistent device use of CPAP for hypertension and gastric reflux. 2. Obesity, unspecified. Currently patients BMI is 33.0. Obesity increases the risk of apnea, CPAP pressure requirements and overall health risks especially cardiovascular and diabetes. Thus patient is advised to lose weight. Weight loss can be done with reducing portion size, reducing refined foods and balancing content with vegetables, fruit and whole grain foods. In addition, patient encouraged to get regular exercise. * Continue auto CPAP pressure at 6-7 cmH2O * Notify me if snoring with mask or feeling that the pressure is too much or too little * Attempt to lose weight * Call this office if any problems using CPAP * Return for follow up in 1 year, or sooner if concerns arise Counseling Topics: Spare mask, Weight loss health impact Visit Type: In Office Time Spent with Patient (minutes): 22 Provider Statement: I spent 100% of the Face to Face Visit with the patient with greater than 50% spent counseling the patient and coordination of care.
== END 2021-10-28 09:12 | disposition home or self-care (01) ==
LOC: SC 09:11
PROVIDERS: ATTEND Nurse Practitioner Family
DX: G47.39 Other sleep apnea (principal); E66.9 Obesity, unspecified; Z68.33 Body mass index [BMI] 33.0-33.9, adult
CPT/HCPCS: 99213; G0463; 99212

== ENCOUNTER 2022-04-12 08:45 | Outpatient (CLI) | payer MEDICARE ==
[2022-04-12 11:53] LABS: BASOPHILS # (AUTO) 0.1 10^3/uL (0.0-0.1); BASOPHILS % (AUTO) 1.3 %; EOSINOPHILS # (AUTO) 0.3 10^3/uL (0.0-0.7); EOSINOPHILS % (AUTO) 5.3 %; HCT - HEMATOCRIT 40.2 % (37.0-47.0); HGB - HEMOGLOBIN 13.9 g/dL (12.0-16.0); LYMPHOCYTES # (AUTO) 1.2 10^3/uL (1.5-3.5); LYMPHOCYTES % (AUTO) 24.9 %; MEAN CORPUSCULAR HGB CONC 34.6 g/dL (32.0-36.0); MEAN CORPUSCULAR VOLUME 95.5 fL (81.0-99.0); MEAN PLATELET VOLUME 10.2 fL (7.9-10.8); MONOCYTES # (AUTO) 0.4 10^3/uL (0.0-1.0); MONOCYTES % (AUTO) 8.9 %; NEUTROPHILS # (AUTO) 2.8 10^3/uL (1.5-6.6); NEUTROPHILS % (AUTO) 59.4 %; PLT - PLATELET COUNT 256 10^3/uL (130-450); RED BLOOD COUNT 4.21 10^6/uL (4.20-5.40); RED CELL DISTRIBUTION WIDTH 13.6 % (12.0-15.0); WHITE BLOOD COUNT 4.7 x10^3/uL (4.8-10.8)
[2022-04-12 12:14] LABS: ESTIMATED AVERAGE GLUCOSE 111 mg/dL (70-100); HEMOGLOBIN A1c% 5.5 % (4.27-6.07)
[2022-04-12 12:32] LABS: ALBUMIN 4.2 g/dL (3.2-5.5); ALBUMIN/GLOBULIN RATIO 1.4 (1.0-2.2); ALKALINE PHOSPHATASE 83 IU/L (42-121); ALT ALANINE AMINOTRANSFERASE 30 IU/L (10-60); AST ASPARTATE AMINOTRANSFERASE 27 IU/L (10-42); BUN - BLOOD UREA NITROGEN 19 mg/dL (6-20); CALCIUM 10.1 mg/dL (8.5-10.3); CARBON DIOXIDE - CO2 27 mmol/L (21-32); CHLORIDE 101 mmol/L (101-111); CHOL/HDL RATIO 3.8 (<4.4); CHOLESTEROL 280 mg/dL; CREATININE 0.6 mg/dL (0.4-1.0); GFR - MDRD 98 (>89); GLUCOSE 116 mg/dL (70-100); HDL CHOLESTEROL 74 mg/dL; LDL CHOLESTEROL,CALCULATED 165 mg/dL; LDL/HDL RATIO 2.2 (<4.4); POTASSIUM 4.1 mmol/L (3.5-5.0); SODIUM 136 mmol/L (135-145); TOTAL PROTEIN 7.2 g/dL (6.7-8.2); TRIGLYCERIDES 207 mg/dL; VLDL CHOLESTEROL 41 mg/dL
== END 2022-04-12 08:46 | disposition home or self-care (01) ==
LOC: LAB.N 08:45
PROVIDERS: ATTEND Physician Assistant Medical
DX: E78.5 Hyperlipidemia, unspecified (principal); R73.01 Impaired fasting glucose; K62.5 Hemorrhage of anus and rectum
CPT/HCPCS: 36415; 80053; 80061; 83036; 83721; 85025

== ENCOUNTER 2022-09-15 08:49 | Outpatient (CLI) | payer MEDICARE ==
[2022-09-15 12:40] LABS: ALBUMIN 4.2 g/dL (3.2-5.5); ALBUMIN/GLOBULIN RATIO 1.5 (1.0-2.2); ALKALINE PHOSPHATASE 80 IU/L (42-121); ALT ALANINE AMINOTRANSFERASE 29 IU/L (10-60); AST ASPARTATE AMINOTRANSFERASE 24 IU/L (10-42); BILIRUBIN,TOTAL 0.4 mg/dL (0.2-1.0); BUN - BLOOD UREA NITROGEN 17 mg/dL (6-20); CALCIUM 9.6 mg/dL (8.5-10.3); CARBON DIOXIDE - CO2 29 mmol/L (21-32); CHLORIDE 106 mmol/L (101-111); CHOL/HDL RATIO 3.6 (<4.4); CHOLESTEROL 247 mg/dL; CREATININE 0.6 mg/dL (0.4-1.0); GFR - MDRD 98 (>89); GLUCOSE 108 mg/dL (70-100); HDL CHOLESTEROL 68 mg/dL; LDL CHOLESTEROL,CALCULATED 143 mg/dL; LDL/HDL RATIO 2.1 (<4.4); SODIUM 140 mmol/L (135-145); TRIGLYCERIDES 180 mg/dL; VLDL CHOLESTEROL 36 mg/dL
== END 2022-09-15 08:50 | disposition home or self-care (01) ==
LOC: LAB.N 08:49
PROVIDERS: ATTEND Physician Assistant Medical
DX: E78.5 Hyperlipidemia, unspecified (principal)
CPT/HCPCS: 36415; 80053; 80061; 83721

== ENCOUNTER 2022-12-20 10:31 | Outpatient (CLI) | payer MEDICARE ==
[2022-12-20 12:24] LABS: ALBUMIN 4.3 g/dL (3.2-5.5); ALBUMIN/GLOBULIN RATIO 1.4 (1.0-2.2); ALKALINE PHOSPHATASE 82 IU/L (42-121); ALT ALANINE AMINOTRANSFERASE 29 IU/L (10-60); AST ASPARTATE AMINOTRANSFERASE 23 IU/L (10-42); BILIRUBIN,TOTAL 0.5 mg/dL (0.2-1.0); BUN - BLOOD UREA NITROGEN 19 mg/dL (6-20); CALCIUM 9.6 mg/dL (8.5-10.3); CARBON DIOXIDE - CO2 26 mmol/L (21-32); CHLORIDE 108 mmol/L (101-111); CHOL/HDL RATIO 3.6 (<4.4); CHOLESTEROL 228 mg/dL; CREATININE 0.6 mg/dL (0.4-1.0); GFR - MDRD 98 (>89); GLUCOSE 109 mg/dL (70-100); HDL CHOLESTEROL 63 mg/dL; LDL CHOLESTEROL,CALCULATED 123 mg/dL; POTASSIUM 4.3 mmol/L (3.5-5.0); SODIUM 139 mmol/L (135-145); TOTAL PROTEIN 7.4 g/dL (6.7-8.2); TRIGLYCERIDES 212 mg/dL; VLDL CHOLESTEROL 42 mg/dL
== END 2022-12-20 10:32 | disposition home or self-care (01) ==
LOC: LAB.N 10:31
PROVIDERS: ATTEND Physician Assistant Medical
DX: E78.5 Hyperlipidemia, unspecified (principal)
CPT/HCPCS: 36415; 80053; 80061; 83721

== ENCOUNTER 2023-02-26 10:07 | Outpatient (CLI) | payer MEDICARE ==
--- NOTE | 2023-02-26 12:40 | SLEEP CARE CONSULTATION ---
Information from patient questionnaire entered by Arely Meyers. I have reviewed and concur with the information entered by Arely Meyers. This document represents the service I personally performed and the decisions made by me, Jus Yepez MD, [facility]. History of Present Illness Service Date and Time: 02/26/2023 1007 Previous diagnosis: Severe, Complex Sleep Apnea-Hypopnea Syndrome AHI: 30 (in 2011) Reason for follow up: annual (LAST SEEN 10/2021) Equipment type: CPAP (RESMED) Equipment obtained from: [employer] [facility] (getting supplies as needed) Mask style: Nasal (over the nose) Prior sleep studies: Yes Year and Where: [facility] Type of Sleep Study: Polysomnography HPI additional information: Ms. Alarcon returned with her today for follow up of nasal CPAP therapy. She was diagnosed to have moderate obstructive sleep apnea-hypopnea syndrome. The patient went to [facility] [employer] [facility] for the equipment and was fitted with a real trends & [employer] Eson 1 nasal mask. She reports using the ResMed AirSense 11 nightly and all through the night. The compliance report shows usage in 308 nights out of the past 356 nights, averaging 8.2 hours a night. The > 4 hour compliance rate for the past 30 days is 83%. She complained of no particular problem with the device such as soreness on the face, dry nose, epistaxis, nasal congestion or headache. She thinks that the pressure of 5 8.4 cmH2O is comfortable. On the CPAP therapy she notices improvement in her sleep quality, and that she wakes up feeling fresher in the morning and more awake/alert during the day. The [place] Sleepiness Scale score 8. Her notices no snore at all. The average residual AHI is 2.7; and air leak, 1.3 L/min. The 90th percentile pressure is 7 cmH2O. Sleep Study - Results Type of Sleep Study: Polysomnography Prior sleep studies: Yes Year and Where: [facility] CPAP Compliance Data - Data Reviewed with Patient Average duration of nightly device use: 8HRS 2MIN Compliance rate %: 81 (08/28/22-02/23/23) Current pressure setting (cmH2O): 6-7 Average residual AHI: 2.6 Subjective Initial [place] Sleepiness Scale score: 3 (2020) Current [place] Sleepiness Scale score: 8 (02/26/23) Allergies and Home Medications Drug allergies reviewed: Yes Home medication list reviewed: Yes Allergy and home medication list: Allergies propoxyphene [From Darvon] Allergy (Verified 02/23/23 14:51) Diaphoresis Sulfa (Sulfonamide Antibiotics) Allergy (Verified 02/23/23 14:51) Edema Review of Systems Review of systems same as previous: Yes Physical Exam Vital signs obtained and entered by: ARELY Reyes MA Blood Pressure: 128/76 (LEFT ARM) Cuff size: regular Heart Rate: 78 O2 Saturation: 96 Height: 5 ft 2 in Weight: 189 lb 12.8 oz Body Mass Index: 34.7 BMI Classification: Obese Impression and Plan IMPRESSION: 1. Obstructive Sleep Apnea-Hypopnea Syndrome, moderate (AHI was 25 at [facility]) with the patient doing well on nasal CPAP therapy. She has excellent compliance and significant clinical improvement. The current pressure appears effective and comfortable. Overall, she is very satisfied with the treatment and plans to continue with it long-term. No adjustment is necessary today. The patient would like to switch [facility] [employer]. PLAN: 1. Continue with nasal CPAP therapy with 5 8.4 cmH2O. 2. Prescription made for CPAP supplies through [employer], [employer]. 3. Try ResMed N30i mask or Respironics DreamWear nasal cushion mask. 4. Return in one year for follow up or earlier if there is any problem with the treatment. Counseling Topics: Weight control Prescriptions: Device supplies Follow up with Sleep Care in: 1 year Visit Type: In Office Time Spent with Patient (minutes): 15 Provider Statement: I spent 100% of the Face to Face Visit with the patient with greater than 50% spent counseling the patient and coordination of care.
[2023-02-26 12:46] VITALS: BP 128/76; O2SAT 96
== END 2023-02-26 10:08 | disposition home or self-care (01) ==
LOC: SC 10:07
PROVIDERS: ATTEND Internal Medicine Pulmonary Disease
DX: G47.33 Obstructive sleep apnea (adult) (pediatric) (principal); E66.9 Obesity, unspecified; Z68.34 Body mass index [BMI] 34.0-34.9, adult
CPT/HCPCS: 99212; G0463

== ENCOUNTER 2023-06-05 13:57 | Outpatient (CLI) | payer MEDICARE ==
--- NOTE | 2023-06-05 21:08 | XRAY Report ---
PROCEDURE: Cervical Spine 2 View INDICATIONS: NECK PAIN TECHNIQUE: 3 view(s) of the cervical spine were acquired. COMPARISON: None. FINDINGS: Bones: No fractures or dislocations to the T1 level. The lateral masses of C1 appear intact on the odontoid view. No suspicious bony lesions. Extensive cervical spondylosis with multilevel facet art hropathy, predominantly on the left. There is multilevel significant disc height loss and uncovertebr al joint hypertrophy, likely resulting in multilevel bilateral foraminal narrowing. Soft tissues: No prevertebral soft tissue swelling. IMPRESSION: Severe cervical spondylitic change. Comment: Cervical spine MRI may be helpful. Reviewed by: Jero Sim MD on 06/05/2023 9:06 PM PST Approved by: Jero Sim MD on 06/05/2023 9:06 PM [facility] Station ID: [id number]
== END 2023-06-05 13:58 | disposition home or self-care (01) ==
LOC: DI 13:57
PROVIDERS: ATTEND Physician Assistant Medical
DX: M47.812 Spondylosis without myelopathy or radiculopathy, cervical region (principal)

== ENCOUNTER 2023-06-08 10:15 | Outpatient (CLI) | payer MEDICARE ==
[2023-06-08 12:35] LABS: BASOPHILS # (AUTO) 0.1 10^3/uL (0.0-0.1); BASOPHILS % (AUTO) 1.3 %; EOSINOPHILS # (AUTO) 0.3 10^3/uL (0.0-0.7); EOSINOPHILS % (AUTO) 5.4 %; HCT - HEMATOCRIT 40.4 % (37.0-47.0); HGB - HEMOGLOBIN 13.6 g/dL (12.0-16.0); LYMPHOCYTES # (AUTO) 1.3 10^3/uL (1.5-3.5); LYMPHOCYTES % (AUTO) 27.3 %; MEAN CORPUSCULAR HEMOGLOBIN 32.1 pg (27.0-31.0); MEAN CORPUSCULAR HGB CONC 33.7 g/dL (32.0-36.0); MEAN CORPUSCULAR VOLUME 95.3 fL (81.0-99.0); MEAN PLATELET VOLUME 9.8 fL (7.9-10.8); MONOCYTES # (AUTO) 0.3 10^3/uL (0.0-1.0); MONOCYTES % (AUTO) 6.9 %; NEUTROPHILS # (AUTO) 2.8 10^3/uL (1.5-6.6); NEUTROPHILS % (AUTO) 58.7 %; PLT - PLATELET COUNT 260 10^3/uL (130-450); RED BLOOD COUNT 4.24 10^6/uL (4.20-5.40); RED CELL DISTRIBUTION WIDTH 12.9 % (12.0-15.0); WHITE BLOOD COUNT 4.8 x10^3/uL (4.8-10.8)
[2023-06-08 13:18] LABS: CHOL/HDL RATIO 3.8 (<4.4); CHOLESTEROL 228 mg/dL; HDL CHOLESTEROL 60 mg/dL; LDL CHOLESTEROL,CALCULATED 127 mg/dL; LDL/HDL RATIO 2.1 (<4.4); TRIGLYCERIDES 207 mg/dL (48-352); VLDL CHOLESTEROL 41 mg/dL
== END 2023-06-08 10:16 | disposition home or self-care (01) ==
LOC: LAB.N 10:15
PROVIDERS: ATTEND Physician Assistant Medical
DX: E78.5 Hyperlipidemia, unspecified (principal); M81.0 Age-related osteoporosis without current pathological fracture; R41.3 Other amnesia; K21.9 Gastro-esophageal reflux disease without esophagitis
CPT/HCPCS: 36415; 80061; 82306; 82607; 83721; 85025